=== PATIENT | female | born 1960 | race Caucasian/White ===

== ENCOUNTER → 2017-02-17 | Outpatient (CLI) | payer BC ==
[2016-05-26 14:09] VITALS: BP 102/60
[~2017-02-17] MED LIST: HYDR-79 PO; REGADENOSON 0.4 MG/5 ML DISP.SYRIN. IV ONE; SULF1TAB24 PO
--- NOTE | 2017-02-17 12:58 | RAD ---
APPROVED REPORT Test Type: Pharmacological Stress Nurse/Tech: RT Juan Luis (R) (N) Test Indications: Chest pain Cardiac History: Hypertension Medications: SEE EHR Resting Heart Rate: 102 bpm Resting Blood Pressure: 144/82mmHg Pretest Chest Pain: None Nurse/Tech Notes Occ PVC in recovery Pharm. Details Pharmacologic stress testing was performed using 0.4mg per 5ml of regadenoson given intravenously ove r 7-10 seconds. Stress Symptoms Chest tightness, dyspnea POST EXERCISE Max HR: 107 bpm Max Blood Pressure: 145/79mmHg Blood Pressure response to exercise: Normal blood pressure response during stress. Heart Rate response to exercise: Normal Chest Pain: No. Arrhythmia: No. ST Change: No. INTERPRETATION Stress EKG Conclusion: Baseline EKG showed sinus rhythm. No ischemic changes at peak stress. No arr hythmias. Imaging Protocol IMAGE PROTOCOL: Rest Tc-99m/stress Tc-99m 1 day Rest: Stress: Viability: Radiopharm.Tc99m AmpqoqthyHf80x Sestamibi Zcfw36lQy 33mCi Duration 20min. 15min. Img Date 02/17/2017 02/17/2017 Inj-Img Jxhg98ksa. 60min. Rest Admin Site:IV - Right HandAdministrator: RT Juan Luis (Glenda)(N) Stress Admin Site: IV - Right HandAdministrator: RT Juan Luis (R)(N) STRESS DATA End Diast. Vol.159.0mlAv. Heart Vymm470.0bpm LVEDV index BSA3.0mlCardiac Output0.1L/min End Syst. Vol.91.0mlCO Index BSA7.1L/min LVESV index BSA2.0mlMyocardial Kkrt386.0g Eject. Ncpldgbj19.0% Stress Rates Pk. Fill Rate2.09EDV/secLVtime Pk. Fill 131.44msec Pk. Empty Rate3.75ESV/secLVtime Pk. Jhxfq691.60msec 03/25 Pk. Fill0.72EDV/sec Stress Scores Regional WT3.00Summed WT37.00 Regional WM0.00Summed WM23.00 LV Perfusion Scintigraphic images technically difficult but there appeared to be no significant fixed or reversibl e defects Wall Motion Mild global left ventricular systolic dysfunction with ejection fraction calculated at 43%. LV Perf. Quant 17 Seg. SSS6.00 17 Seg. SRS1.00 17 Seg. SDS6.00 Stress Defect Extent (% LAD)2.50Rest Defect Extent (% LAD)5.60Rev. Defect Extent (% LAD)2.50 Stress Defect Extent (% LCX) 0.00Rest Defect Extent (% LCX)0.00Rev. Defect Extent (% LCX)0.00 Stress Defect Extent (% RCA)18.90Rest Defect Extent (% RCA)0.00Rev. Defect Extent (% RCA)18.90 Stress Defect Extent (% RIVER)6.30Rest Defect Extent (% RIVER)3.00Rev. Defect Extent (% RIVER)6.30 Conclusion 1. Regadenoson cardioisotope stress test technically difficult but did not show any obvious evidence of ischemia or infarct. 2. Mild global left ventricular systolic dysfunction with ejection fraction calculated at 43%. 3. Low to intermediate risk for cardiac events.
--- NOTE | 2017-02-18 05:55 | RAD ---
APPROVED REPORT Patient Location: OUT-PATIENT Indications Claudication: Blood pressures in the right arm and right DPA/TUMBLER MACHINE OPERATOR are as follows: 150 mmHg, 140 mmHg and 148 mmHg re spectively. Blood pressures in the left arm and left DPA and TUMBLER MACHINE OPERATOR are as follows: 150 mmHg, 142 mmHg and 160 mmHg respectively. Right STANLEY: 0.99 Left STANLEY: 1.07 Critical Notification Critical Value: No <Conclusion> 1. Normal bilateral ankle-brachial indices as noted above.
--- NOTE | 2017-02-18 06:13 | RAD ---
APPROVED REPORT Patient Location: OUT-PATIENT Indications Claudication: Nguyễn scale images of the bilateral lower extremity arterial vessels reveals mild diffuse atherosclero tic plaque. On the right velocities are mildly elevated in the INSIDE WIRER, profunda and proximal superficial femoral art eries. The proximal to mid superficial femoral artery has a less than 50% obstructive luminal stenosi s on nguyễn scale images with velocity acceleration to 261 cm/s at a peak systolic velocity ratio of ap proximately 1.7 suggestive of a less than 50% stenosis. The remainder of the SFA, popliteal and below -knee vessels demonstrate biphasic waveforms with patency of all 3 vessels. There is no evidence of s ignificant velocity acceleration or deceleration noted. There is a velocity of 27 cm/s in the dorsali s pedis artery suggestive of diffuse small vessel disease. On the left velocities are biphasic from the common femoral artery to the dorsalis pedis artery. Velo cities are within except or ranges and there is no evidence of high-grade stenosis. Critical Notification Critical Value: No <Conclusion> 1. Mild diffuse atherosclerosis. 2. A less than 50% stenosis is noted in the proximal to mid SFA. 3. Otherwise no high-grade disease in the bilateral lower extent B arterial vessels with patency of a ll 3 below-knee vessels bilaterally. 4. Suspect distal small vessel disease.
--- NOTE | 2017-02-18 06:16 | RAD ---
APPROVED REPORT Bilateral Lower Extremity Venous Study for DVT Patient Location: OUT-PATIENT Indications Lower Extremity Pain: Lower Extremity Edema: Grayscale images of the bilateral lower extremity deep veins were obtained from the common femoral to the popliteal vein. The below-knee veins were not well visualized but appear to demonstrate spontane ous flow. The common femoral, profunda and superficial femoral veins and popliteal veins bilaterally appear to be fully compressible. Spectral waveforms and color Doppler do not reveal any obstruction to flow. Th ere is normal respirophasic variation. Critical Notification Critical Value: No <Conclusion> Negative for DVT in the bilateral lower extremities.
== END | disposition home or self-care (01) ==
LOC: NM 07:38
PROVIDERS: ATTEND Internal Medicine Cardiovascular Disease
DX: I70.298 Other atherosclerosis of native arteries of extremities, other extremity (principal); I10 Essential (primary) hypertension; E11.9 Type 2 diabetes mellitus without complications; R60.9 Edema, unspecified; F17.200 Nicotine dependence, unspecified, uncomplicated
CPT/HCPCS: 78452; 93017; 93922; 93925; 93970; 96374; 96375; 96376; A9500; J2785

== ENCOUNTER → 2017-09-08 | Outpatient (CLI) | payer BC ==
[2016-05-26 14:09] VITALS: BP 102/60
[~2017-09-08] MED LIST changes: -REGADENOSON 0.4 MG/5 ML DISP.SYRIN. IV ONE
--- NOTE | 2017-09-10 08:47 | CARD ---
MR#: [id number] Account#: Date of Study: 09/08/2017 Ordering Physician: Cecilia: Ila Carter RDCS APPROVED REPORT EXAM: Two-dimensional and M-mode echocardiogram with Doppler and color Doppler. Other Information Quality : Good INDICATION LV Function:Systolic 2D DIMENSIONS RVDd2.9 (2.9-3.5cm)Left Atrium(2D)3.9 (1.6-4.0cm) IVSd1.4 (0.7-1.1cm)Aortic Root(2D)2.9 (2.0-3.7cm) LVDd4.5 (3.9-5.9cm)LVOT Diameter2.1 (1.8-2.4cm) PWd1.3 (0.7-1.1cm)LVDs3.1 (2.5-4.0cm) FS (%) 25.0 %SV57.4 ml LVEF(%)50.0 (>50%) Aortic Valve AoV Peak Deon.155.1cm/sAoV VTI24.8cm AO Peak GR.9.6mmHgLVOT Peak Deno.130.6cm/s LVOT VTI 19.11cmAO Mean GR.6mmHg LISA (VMAX)2.69zf7RZH (VTI)2.63cm2 Mitral Valve MV E Lnpveqvb40.6cm/sMV DECEL IWFZ085rh MV A Aqzlvytr019.4cm/sE/A Ratio0.8 Tricuspid Valve TR P. Gmukqpyh115vb/sRAP ZGHRGXUY7qgJo TR Peak Gr.62iiVdHJXA93woIa LEFT VENTRICLE The left ventricle is normal size. There is mild concentric left ventricular hypertrophy. Left ventri cj systolic function is mildly decraesed. The ejection fraction is estimated at 45-50%. Transmitral Doppler flow pattern is Grade I-abnormal relaxation pattern. RIGHT VENTRICLE The right ventricle is normal size. The right ventricular systolic function is normal. ATRIA The left atrium size is normal. The right atrium size is normal. The interatrial septum is intact wit h no evidence for an atrial septal defect or patent foramen ovale as noted on 2-D or Doppler imaging. AORTIC VALVE The aortic valve is calcified but opens well. Doppler and Color Flow revealed no significant aortic r egurgitation. There is no significant aortic valvular stenosis. MITRAL VALVE The mitral valve is normal in structure and function. There is no evidence of mitral valve prolapse. There is no mitral valve stenosis. Doppler and Color Flow revealed no mitral valve regurgitation note d. TRICUSPID VALVE The tricuspid valve is normal in structure and function. Doppler and Color Flow revealed trace tricus pid regurgitation. The PA pressure was estimated at 29 mmHg. There is no tricuspid valve stenosis. PULMONIC VALVE The pulmonary valve is normal in structure and function. Doppler and Color Flow revealed mild pulmoni c valvular regurgitation. There is no pulmonic valvular stenosis. GREAT VESSELS The aortic root is normal in size. The ascending aorta is normal in size. The IVC is normal in size a nd collapses >50% with inspiration. PERICARDIAL EFFUSION There is no evidence of significant pericardial effusion. Critical Notification Critical Value: No <Conclusion> Left ventricle systolic function is mildly decraesed. The ejection fraction is estimated at 45-50%. Transmitral Doppler flow pattern is Grade I-abnormal relaxation pattern. Doppler and Color Flow revealed trace tricuspid regurgitation. The PA pressure was estimated at 29 mmHg. There is no evidence of significant pericardial effusion. Signed by : Brett Gutierres, Electronically Approved : 09/08/2017 16:44:57
== END | disposition home or self-care (01) ==
LOC: ECHO 14:55
PROVIDERS: ATTEND Internal Medicine Cardiovascular Disease
DX: R09.89 Other specified symptoms and signs involving the circulatory and respiratory systems (principal)
CPT/HCPCS: 93306

== ENCOUNTER → 2018-04-29 | Outpatient (CLI) | payer BC ==
[2016-05-26 14:09] VITALS: BP 102/60
[~2018-04-29] MED LIST changes: +HYDR-1179 PO; -HYDR-79 PO
--- NOTE | 2018-04-29 18:04 | EKG ---
[address] [address] Test Date: 2018-04-29 Test Time: 15:17:53 Pat Name: ISIDRA BROWN Department: Room: Gender: F Medical Support Assistant: BRYCE : 1960 Requested By: KRISTI SANTOS Order Number: [id number] Reading MD: Measurements Intervals [place] Rate: 108 P: TN: QRS: 29 QRSD: 102 T: 62 QT: 356 QTc: 481 Interpretive Statements ACCELERATED JUNCTIONAL RHYTHM ABNORMAL ECG RI6.01 No previous ECG available for comparison
== END | disposition home or self-care (01) ==
LOC: EKG 15:02
PROVIDERS: ATTEND Nurse Practitioner Family
DX: Z01.818 Encounter for other preprocedural examination (principal); R94.31 Abnormal electrocardiogram [ECG] [EKG]
CPT/HCPCS: 93005

== ENCOUNTER → 2018-10-19 | Outpatient (CLI) | payer BC ==
[2016-05-26 14:09] VITALS: BP 102/60
--- NOTE | 2018-10-19 14:25 | CARD ---
MR#: [id number] Date of Study: 10/19/2018 Ordering Physician: JOSI SUTTON, Referring Physician: JOSI SUTTON, Tech: Meera Arthur RDCS APPROVED REPORT EXAM: Two-dimensional and M-mode echocardiogram with Doppler and color Doppler. Other Information Quality : AverageHR: 110bpm Rhythm : Tachycardia INDICATION Chest Pain 2D DIMENSIONS RVDd3.4 (2.9-3.5cm)Left Atrium(2D)3.9 (1.6-4.0cm) IVSd1.0 (0.7-1.1cm)Aortic Root(2D)3.1 (2.0-3.7cm) LVDd5.3 (3.9-5.9cm)LVOT Diameter2.1 (1.8-2.4cm) PWd1.1 (0.7-1.1cm)LVDs3.7 (2.5-4.0cm) FS (%) 29.6 %SV74.9 ml LVEF(%)56.2 (>50%) M-Mode DIMENSIONS Left Atrium(MM)3.95 (2.5-4.0cm)Aortic Root2.80 (2.2-3.7cm) Aortic Valve AoV Peak Deon.155.1cm/sAoV VTI23.4cm AO Peak GR.9.6mmHgLVOT Peak Deon.99.9cm/s LVOT VTI 15.01cmAO Mean GR.5mmHg LISA (VMAX)2.65px9ZHH (VTI)2.23cm2 Mitral Valve MV E Fqvmhrwu66.0cm/sMV DECEL JVFJ31iy MV A Rgqtnobh626.4cm/sE/A Ratio0.8 Pulmonary Valve PV Peak Kdofpzph616.3cm/sPV Peak Grad.7mmHg Tricuspid Valve TR P. Ebqnpkbx282tq/sRAP OZHXSSEB7vhNw TR Peak Gr.56swTgKKAB56alDj LEFT VENTRICLE The left ventricle is normal size. There is normal left ventricular wall thickness. The left ventricu lar systolic function is normal. The Ejection Fraction is 55-60%. There is normal LV segmental wall m otion. Transmitral Doppler flow pattern is Grade I-abnormal relaxation pattern. RIGHT VENTRICLE The right ventricle is normal size. There is normal right ventricular wall thickness. The right ventr icular systolic function is normal. ATRIA The left atrium is borderline dilated. The right atrium size is normal. The interatrial septum is int act with no evidence for an atrial septal defect or patent foramen ovale as noted on 2-D or Doppler i maging. AORTIC VALVE The aortic valve is mildly calcified. The aortic valve is trileaflet. Doppler and Color Flow revealed no significant aortic regurgitation. There is no significant aortic valvular stenosis. There is no a ortic valvular vegetation. MITRAL VALVE The mitral valve is normal in structure and function. There is no evidence of mitral valve prolapse. There is no mitral valve stenosis. Doppler and Color Flow revealed no mitral valve regurgitation note d. TRICUSPID VALVE The tricuspid valve is normal in structure and function. Doppler and Color Flow revealed trace tricus pid regurgitation. The PA pressure was estimated at 37 mmHg. There is no tricuspid valve prolapse or vegetation. There is no tricuspid valve stenosis. PULMONIC VALVE The pulmonary valve is normal in structure and function. Doppler and Color Flow revealed trace pulmon ic valvular regurgitation. There is no pulmonic valvular stenosis. GREAT VESSELS The aortic root is normal in size. The ascending aorta is normal in size. The IVC is normal in size a nd collapses >50% with inspiration. PERICARDIAL EFFUSION There is no evidence of significant pericardial effusion. Critical Notification Critical Value: No <Conclusion> The left ventricular systolic function is normal. The Ejection Fraction is 55-60%. There is normal LV segmental wall motion. Transmitral Doppler flow pattern is Grade I-abnormal relaxation pattern. Trace tricuspid regurgitation. The PA pressure was estimated at 37 mmHg. There is no evidence of significant pericardial effusion. Signed by : Brett Gutierres, Electronically Approved : 10/19/2018 14:24:16
== END | disposition home or self-care (01) ==
LOC: ECHO 13:05
PROVIDERS: ATTEND Internal Medicine Cardiovascular Disease
DX: I35.8 Other nonrheumatic aortic valve disorders (principal)
CPT/HCPCS: 93306

== ENCOUNTER → 2020-01-16 | Outpatient (CLI) | payer BC ==
[2016-05-26 14:09] VITALS: BP 102/60
--- NOTE | 2020-01-16 14:45 | RAD ---
EXAM: Chest, 2 views. HISTORY: Cough. COMPARISON: None. FINDINGS: 2 views of the chest are obtained. There is diffuse central predominant interstitial infiltrate. There is no consolidation, protrusion or pneumothorax. There is a prominent cardiac silhouette. There is cervical spinal fusion instrumentation at the superior margin of the xlcob-iv-bhjf. IMPRESSION: Diffuse central predominant interstitial infiltrate. Electronically signed by: Kaycee Mena MD (01/16/2020 2:42 PM) [id number]
== END ==
LOC: DXRAD 13:37
PROVIDERS: ATTEND Family Medicine
DX: R05 Cough (principal); M43.22 Fusion of spine, cervical region
CPT/HCPCS: 71046